=== PATIENT | female | born 1955 | race Caucasian/White ===

== ENCOUNTER 2021-06-28 08:00 | Day surgery (SDC) | payer MEDICARE, MEDICAID ==
[~2021-06-28] VITALS: Ht 162.6 cm; Wt 84.5 kg
[2021-06-28] VITALS (11 sets, daily range): BP systolic 108–140; BP diastolic 64–74
[2021-06-28] MEDS ORDERED: ALBU18HF2 INH (08:24)
[2021-06-28] MEDS ORDERED: normal saline 1000ml 1,000 ML IV PRN (08:45)
[2021-06-28] MEDS ORDERED: LIDOcaine 1%/PF 5ML 10 MG/ML VIAL ONE (10:56)
[2021-06-28] MEDS ORDERED: midazolam 1 mg/ML 2ml injection ONE (10:59)
[2021-06-28] MEDS ORDERED: diphenhydrAMINE 50 mg/ml inj ONE (11:27)
[2021-06-28] MEDS ORDERED: gelatin sponge, absorbable (Gelfoam 12-7MM) sponge TP ONE (11:59)
== END 2021-06-28 13:30 | disposition home or self-care (01) ==
LOC: SSTAY O 08:00
PROVIDERS: ATTEND Radiology Vascular & Interventional Radiology
DX: R19.01 Right upper quadrant abdominal swelling, mass and lump (principal); Z88.5 Allergy status to narcotic agent; Z88.8 Allergy status to other drugs, medicaments and biological substances; Z90.49 Acquired absence of other specified parts of digestive tract; Z98.890 Other specified postprocedural states; Z79.899 Other long term (current) drug therapy; Z87.891 Personal history of nicotine dependence
CPT/HCPCS: 49180; 77012; 88305; 99152; 99153; J1200; J2250; J3490